=== PATIENT | female | born 1980 | race Caucasian/White ===

== ENCOUNTER 2021-09-09 17:06 | Emergency (ER) | payer BC ==
[2021-09-09 17:14] VITALS: BP 108/82; PULSE 114; TEMP 98.8; BMI 25.1
== END 2021-09-09 17:58 | disposition home or self-care (01) ==
LOC: JER 17:06
DX: S96.912A Strain of unspecified muscle and tendon at ankle and foot level, left foot, initial encounter (principal); X50.0XXA Overexertion from strenuous movement or load, initial encounter
CPT/HCPCS: 73630-TC-LT; 99283-25

== ENCOUNTER 2024-10-12 13:07 | Emergency (ER) | payer BC ==
[2024-10-12 13:23] VITALS: BMI 23.6
[2024-10-12] MEDS ORDERED: ACETAMINOPHEN INJECTION 100 ML ONE (14:25)
[2024-10-12] MEDS ORDERED: methylPREDNISolone NA SUCC 125 MG/2 ML VIAL ONE (14:25)
[2024-10-12] MEDS: SODIUM CHLORIDE 0.9% 1000 ML INFUS.BAG IV STA (15:00)
[2024-10-12] MEDS: ACETAMINOPHEN 1000 MG/100 ML BAG IVPB ONE (15:01)
[2024-10-12] MEDS: methylPREDNISolone NA SUCC 125 MG/2 ML VIAL IVPUSH ONE (15:01)
[2024-10-12 15:04] LABS: BASO % 0.4 % (0-2.0); HEMATOCRIT 42.2 % (32.4-45.2); HEMOGLOBIN 13.9 GM/dL (10.7-15.3); LYMPH % 9.5 % (8-40); MCH 29.3 pg (25.7-33.7); MCHC 32.9 g/dl (32.0-36.0); MEAN PLT VOLUME 9.2 fl (7.5-11.1); MONO % 12.7 % (3.8-10.2); NEUT % 76.4 % (42.8-82.8); PLATELET COUNT 312 10^3/uL (134-434); RBC 4.73 M/mm3 (3.60-5.2); RDW 16.2 % (11.6-15.6); WHITE BLOOD COUNT 4.8 K/mm3 (4.0-10.0)
[2024-10-12 15:06] LABS: VENOUS BASE EXCESS 0 mmol/L (-2-2); VENOUS PCO2 49.9 mmHg (38-52); VENOUS PH 7.342 (7.310-7.410)
[2024-10-12 15:24] LABS: INR 1.17 (0.83-1.09); PROTHROMBIN TIME (PATIENT) 13.2 SEC (9.7-13.0)
[2024-10-12 15:27] LABS: ACTIVATED PTT 36.3 SECONDS (25.2-36.5)
[2024-10-12 15:32] LABS: ALBUMIN 3.7 g/dl (3.4-5.0); CALCIUM 9.2 mg/dL (8.5-10.1)
[2024-10-12 15:36] LABS: CREATININE 0.7 mg/dL (0.55-1.3); POTASSIUM 4.1 mmol/L (3.5-5.1)
[2024-10-12 15:37] LABS: BILIRUBIN,TOTAL 0.9 mg/dL (0.2-1); TOT PROT 8.6 g/dl (6.4-8.2)
[2024-10-12] MEDS ORDERED: AZITHROMYCIN IVPB 500 MG/250 ML BAG IVPB ONE (15:45)
[2024-10-12] MEDS ORDERED: CEFTRIAXONE 1 G/50 ML PREMIX 50 ML IVPB ONE (15:45)
[2024-10-12] MEDS: AZITHROMYCIN IVPB 500 MG in DEXTROSE 5%-WATER - 250 ML IVPB ONE (16:01)
[2024-10-12] MEDS: CEFTRIAXONE 1 GM in DEXTROSE 5%-WATER - 100 ML IVPB ONE (16:01)
[2024-10-12 17:47] VITALS: BP 124/80; PULSE 104; RESP 20; TEMP 98.1
== END 2024-10-12 17:52 | disposition left against medical advice (07) ==
LOC: JER 13:07
PROC: 3E033NZ Introduction of Analgesics, Hypnotics, Sedatives into Peripheral Vein, Percutaneous Approach (ICD-10-PCS; principal; 2024-10-12)
PROC: 3E03329 Introduction of Other Anti-infective into Peripheral Vein, Percutaneous Approach (ICD-10-PCS; 2024-10-12)
PROC: 3E03329 Introduction of Other Anti-infective into Peripheral Vein, Percutaneous Approach (ICD-10-PCS; 2024-10-12)
PROC: 3E033GC Introduction of Other Therapeutic Substance into Peripheral Vein, Percutaneous Approach (ICD-10-PCS; 2024-10-12)
DX: J18.9 Pneumonia, unspecified organism (principal); R05.9 Cough, unspecified; R50.9 Fever, unspecified; R00.0 Tachycardia, unspecified; Z20.822 Contact with and (suspected) exposure to COVID-19
CPT/HCPCS: 0241U-QW; 36415; 71046-TC-FY; 80053; 82803; 83605; 84484; 84703; 85025; 85610; 85730; 86850; 86900; 86901; 87040; 93005; 93010; 99285-25; J0131

== ENCOUNTER 2024-10-21 21:22 | Observation (INO) | payer BC ==
[2024-10-21 22:41] LABS: BASO % 0.7 % (0-2.0); HEMOGLOBIN 11.8 GM/dL (10.7-15.3); MCH 28.9 pg (25.7-33.7); MCHC 31.9 g/dl (32.0-36.0); MEAN CELL VOLUME 90.7 fl (80-96); MEAN PLT VOLUME 8.9 fl (7.5-11.1); MONO % 10.2 % (3.8-10.2); NEUT % 67.1 % (42.8-82.8); PLATELET COUNT 338 10^3/uL (134-434); RBC 4.09 M/mm3 (3.60-5.2); RDW 16.2 % (11.6-15.6); WHITE BLOOD COUNT 6.6 K/mm3 (4.0-10.0)
[2024-10-21 23:12] LABS: POTASSIUM 4.7 mmol/L (3.5-5.1)
[2024-10-21 23:13] LABS: ALBUMIN 3.8 g/dl (3.4-5.0); BLOOD UREA NITROGEN 13.6 mg/dL (7-18); CALCIUM 9.8 mg/dL (8.5-10.1)
[2024-10-21 23:16] LABS: CREATININE 0.7 mg/dL (0.55-1.3)
[2024-10-21 23:18] LABS: BILIRUBIN,TOTAL 0.6 mg/dL (0.2-1); TOT PROT 7.7 g/dl (6.4-8.2)
[2024-10-22] MEDS ORDERED: ALBUTEROL SO4 0.083% IH SOL 2.5 MG/3 ML VIAL.NEB. NEB PRN (01:44)
[2024-10-22 05:03] VITALS: BMI 22.8
[2024-10-22] MEDS: ENOXAPARIN NA (PORCINE) 40 MG/0.4 ML DISP.SYRIN SQ SCH (09:14)
[2024-10-22 09:51] VITALS: BP 118/84; PULSE 115; RESP 18; TEMP 98.6
[2024-10-22] MEDS: methylPREDNISolone NA SUCC 40 MG/1 ML VIAL IVPUSH ONE (11:29)
== END 2024-10-22 12:22 | disposition home or self-care (01) ==
LOC: JER 21:22 → JERBED 10-22 00:36 → J7W 10-22 04:42
PROVIDERS: ADMIT Internal Medicine
PROC: 3E033NZ Introduction of Analgesics, Hypnotics, Sedatives into Peripheral Vein, Percutaneous Approach (ICD-10-PCS; principal; 2024-10-22)
PROC: 3E0337Z Introduction of Electrolytic and Water Balance Substance into Peripheral Vein, Percutaneous Approach (ICD-10-PCS; 2024-10-22)
DX: J18.9 Pneumonia, unspecified organism (principal); J45.901 Unspecified asthma with (acute) exacerbation; Z88.1 Allergy status to other antibiotic agents; Z88.2 Allergy status to sulfonamides
CPT/HCPCS: 36415; 71046-TC-FY; 80053; 85025; 87040; 93005; 93010; 99285-25; G0378

== ENCOUNTER 2025-03-25 15:48 | Emergency (ER) | payer BC ==
[2025-03-25 15:58] VITALS: RESP 18; BMI 23.0
[2025-03-25] MEDS: ACETAMINOPHEN 500 MG TABLET (FP) PO ONE (16:40)
[2025-03-25 17:34] LABS: THROAT:GRP A STREP NOT DETECTED (NOTDETECTED)
[2025-03-25 18:03] VITALS: BP 115/80; PULSE 114; TEMP 98.2
== END 2025-03-25 18:06 | disposition home or self-care (01) ==
LOC: JERFT 15:48
DX: J02.9 Acute pharyngitis, unspecified (principal); J06.9 Acute upper respiratory infection, unspecified; R05.9 Cough, unspecified; R09.81 Nasal congestion; R50.9 Fever, unspecified
CPT/HCPCS: 0241U-QW; 87651; 99283-25